=== PATIENT | female | born 2005 | race Caucasian/White ===

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

== ENCOUNTER → 2023-01-20 | Outpatient (REF) | payer OTHER | LOC: M LAB REF 22:45 | PROVIDERS: ATTEND Physician Assistant | DX: B34.9 Viral infection, unspecified (principal) ==

== ENCOUNTER → 2023-02-16 | Outpatient (CLI) | payer OTHER | LOC: M WHC 08:44 | PROVIDERS: ATTEND Nurse Practitioner Family | DX: R10.2 Pelvic and perineal pain (principal); N85.4 Malposition of uterus ==

== ENCOUNTER → 2023-05-11 | Outpatient (REF) | payer OTHER | LOC: M SFHCLERA 17:31 | PROVIDERS: ATTEND Physician Assistant | DX: R53.83 Other fatigue (principal); E61.1 Iron deficiency; R10.13 Epigastric pain ==

== ENCOUNTER → 2023-07-28 | Outpatient (REF) | payer OTHER ==
[2023-07-28 19:44] LABS: CHLAMYDIA DNA AMPLIFICATION NEGATIVE (NEGATIVE); GC DNA AMPLIFICATION NEGATIVE (NEGATIVE)
== END ==
LOC: M SFHCCAPE 10:57
PROVIDERS: ATTEND Physician Assistant
DX: Z11.3 Encounter for screening for infections with a predominantly sexual mode of transmission (principal)

== ENCOUNTER → 2023-08-19 | Outpatient (REF) | payer OTHER ==
[2023-08-19 13:55] LABS: RSV AMPLIFICATION NEGATIVE (NEGATIVE)
== END ==
LOC: M SFHCLERA 11:01
PROVIDERS: ATTEND Physician Assistant
DX: J22 Unspecified acute lower respiratory infection (principal)

== ENCOUNTER → 2023-09-14 | Outpatient (CLI) | payer OTHER | LOC: M LAB 11:48 | PROVIDERS: ATTEND Nurse Practitioner Family | DX: R68.81 Early satiety (principal) ==

== ENCOUNTER 2024-01-03 06:47 | Day surgery (SDC) | payer OTHER ==
[~2024-01-03] VITALS: Ht 175.3 cm; Wt 52.6 kg
[~2024-01-03 06:47] MED LIST changes: +HAIRTAB10 PO; +NS 1,000 ML IV ONE
[2024-01-03] MEDS ORDERED: propofoL 500 MG/50 ML VIAL As Ordered ONE (07:33)
[2024-01-03] MEDS ORDERED: LIDOCAINE 2% 100MG/5ML SDV (FOR ANES.) As Ordered ONE (07:33)
[2024-01-03] MEDS ORDERED: fentaNYL 100 MCG/2 ML INJECTION As Ordered ONE (07:33)
[2024-01-03 08:05] VITALS: BP 116/68; O2SAT 100
== END 2024-01-03 08:13 | disposition home or self-care (01) ==
LOC: M OPP 06:47
PROVIDERS: ATTEND Internal Medicine Gastroenterology
DX: K20.90 Esophagitis, unspecified without bleeding (principal); K29.70 Gastritis, unspecified, without bleeding; K22.70 Barrett's esophagus without dysplasia; K22.89 Other specified disease of esophagus; F17.290 Nicotine dependence, other tobacco product, uncomplicated; R13.10 Dysphagia, unspecified; R10.13 Epigastric pain
CPT/HCPCS: 43239; 88305; J3010

== ENCOUNTER → 2024-10-10 | Outpatient (REF) ==
[~2024-10-10] MED LIST changes: -NS 1,000 ML IV ONE
== END ==
LOC: M EMP 11:32
PROVIDERS: ATTEND Family Medicine
DX: Z11.52 Encounter for screening for COVID-19 (principal)

== ENCOUNTER → 2024-10-24 | Outpatient (CLI) | payer OTHER ==
[2024-10-24 21:59] LABS: ALBUMIN 4.4 G/DL (3.2-5.2); BILIRUBIN,DIRECT 0.2 MG/DL (<0.4); BILIRUBIN,TOTAL 0.5 MG/DL (0.3-1.2)
== END ==
LOC: M LAB 21:12
PROVIDERS: ATTEND Podiatrist
DX: Z79.899 Other long term (current) drug therapy (principal)

== ENCOUNTER → 2024-11-08 | Outpatient (REF) | payer OTHER ==
[2024-11-08 18:52] LABS: GC DNA AMPLIFICATION NEGATIVE (NEGATIVE)
== END ==
LOC: M LAB REF 16:57
PROVIDERS: ATTEND Nurse Practitioner Family
DX: Z11.3 Encounter for screening for infections with a predominantly sexual mode of transmission (principal)

== ENCOUNTER → 2024-11-22 | Outpatient (CLI) | payer OTHER | LOC: M RAD 07:21 | PROVIDERS: ATTEND Nurse Practitioner Family | DX: R10.12 Left upper quadrant pain (principal) ==

== ENCOUNTER → 2024-12-05 | Outpatient (REF) | payer OTHER ==
[~2024-12-05] MED LIST changes: +NAPR-837 PO
[2024-12-05 20:04] LABS: ALBUMIN 4.3 G/DL (3.2-5.2); BILIRUBIN,DIRECT 0.2 MG/DL (<0.4); BILIRUBIN,TOTAL 0.8 MG/DL (0.3-1.2); TOTAL PROTEIN 7.1 G/DL (5.7-8.2)
== END ==
LOC: M LAB 18:37
PROVIDERS: ATTEND Podiatrist
DX: Z79.899 Other long term (current) drug therapy (principal)

== ENCOUNTER → 2025-05-22 | Outpatient (RCR) | LOC: M EMPSKH 05-06 10:22 | PROVIDERS: ATTEND Family Medicine | DX: Z20.828 Contact with and (suspected) exposure to other viral communicable diseases (principal) ==

== ENCOUNTER → 2025-05-24 | Outpatient (REF) | payer OTHER ==
[2025-05-24 19:45] LABS: Trichomonas vaginalis (AMP) NOT DETECTED (NEGATIVE)
[2025-05-24 20:09] LABS: GC DNA AMPLIFICATION NEGATIVE (NEGATIVE)
== END ==
LOC: M LAB REF 17:14
PROVIDERS: ATTEND Physician Assistant
DX: Z20.2 Contact with and (suspected) exposure to infections with a predominantly sexual mode of transmission (principal)